=== PATIENT | female | born 1935 | race Caucasian/White ===

== ENCOUNTER → 2018-02-22 | Day surgery (SDC) | payer OTHER ==
[2018-02-09 09:04] VITALS: Ht 157.5 cm; Wt 92.9 kg
--- NOTE | 2018-02-09 15:48 | PAT Medication Instructions ---
Service Date Feb 09, 2018. Current Home Medication List Acetaminophen (Tylenol), 650 MG PO Q4H PRN for Pain Albuterol Hfa (Ventolin Hfa), 2 PUFFS INH QID PRN for Shortness of Breath Aspirin (Aspirin), 325 MG PO DAILY Bisacodyl (Bisacodyl Ec), 5 MG PO DAILY PRN for Constipation Bisacodyl (Biscolax), 1 SUPP OR UD PRN for Constipation Calcium Carbonate-Vitamin D (Calcium + D), 1 TAB PO DAILY Cholecalciferol (Vitamin D), 1,000 UNITS PO DAILY Cranberry (Vaccinium Macrocarp (Cranberry), 405 MG PO BID Docusate Sodium (Colace), 1 CAP PO BID Fluticasone-Salmeterol 115/21 Mcg (Advair Hfa 115/21 Mcg), 1 PUFF INH BID Furosemide (Lasix), 80 MG PO QAM Furosemide (Lasix), 80 MG PO 1400 Gabapentin (Neurontin), 200 MG PO TID Glucosamine-Chondroitin (Glucosamine & Chondroitin 500-400 mg), 1 CAP PO BID Home O2 Therapy (Oxygen), 2 LITERS NA CONTINOUS Insulin Aspart (Novolog), 30 UNITS SQ BREAKFAST Insulin Aspart (Novolog), 30 UNITS SQ SUPPER Insulin Aspart (Novolog), 30 UNITS SQ LUNCH Insulin Glargine (Lantus), 40 UNITS SC QAM Insulin Glargine (Lantus), 80 UNITS SC HS Levothyroxine Sodium (Levothyroxine Sodium), 150 MCG PO Q2D Levothyroxine Sodium (Levothyroxine Sodium), 175 MCG PO Q2D Loratadine (Claritin), 10 MG PO DAILY Melatonin (Kp Melatonin), 6 MG PO HS Metoprolol Tartrate (Lopressor) (Lopressor), 50 MG PO BID Nitroglycerin (Nitrostat), 0.4 MG UT PRN Oxycodone/Acetaminophen 5MG/325MG (Percocet 5MG/325MG), 1 TABLET PO Q6H PRN for Pain Polyethylene Glycol 3350 (Miralax), 17 GM PO DAILY Ramipril (Ramipril), 5 MG PO DAILY Ranitidine (Zantac), 150 MG PO BID Simvastatin (Zocor), 40 MG PO QPM Solifenacin Succinate (Vesicare), 10 MG PO DAILY Medication Instructions For Your Scheduled Surgery - Hold the following medications starting 02/09/18: Glucosamine-Chondroitin (Glucosamine & Chondroitin 500-400 mg), 1 CAP PO BID Cranberry (Vaccinium Macrocarp (Cranberry), 405 MG PO BID - Check with surgeon and prescriber for instructions: Aspirin (Aspirin), 325 MG PO DAILY - Take as scheduled IF NEEDED. Notify surgeon if you take this medication the 24 hours prior to surgery: Nitroglycerin (Nitrostat), 0.4 MG UT PRN - Hold the following medications the morning of surgery: Solifenacin Succinate (Vesicare), 10 MG PO DAILY Polyethylene Glycol 3350 (Miralax), 17 GM PO DAILY Ramipril (Ramipril), 5 MG PO DAILY Furosemide (Lasix), 80 MG PO QAM Docusate Sodium (Colace), 1 CAP PO BID Cholecalciferol (Vitamin D), 1,000 UNITS PO DAILY Calcium Carbonate-Vitamin D (Calcium + D), 1 TAB PO DAILY Bisacodyl (Bisacodyl Ec), 5 MG PO DAILY PRN for Constipation IF NEEDED Bisacodyl (Biscolax), 1 SUPP OR UD PRN for Constipation IF NEEDED Insulin Aspart (Novolog), 30 UNITS SQ BREAKFAST - Take the following medications the morning of surgery with a sip of water: OTHERWISE NOTHING TO EAT OR DRINK AFTER MIDNIGHT Acetaminophen (Tylenol), 650 MG PO Q4H PRN for Pain if needed (okay to take up to 4 hours prior to surgery) Ranitidine (Zantac), 150 MG PO BID Oxycodone/Acetaminophen 5MG/325MG (Percocet 5MG/325MG), 1 TABLET PO Q6H PRN for Pain IF NEEDED, MAY TAKE UP TO 4 HOURS PRIOR TO SURGERY Metoprolol Tartrate (Lopressor) (Lopressor), 50 MG PO BID Levothyroxine Sodium (Levothyroxine Sodium), 150 MCG PO Q2D Levothyroxine Sodium (Levothyroxine Sodium), 175 MCG PO Q2D Loratadine (Claritin), 10 MG PO DAILY Gabapentin (Neurontin), 200 MG PO TID Home O2 Therapy (Oxygen), 2 LITERS NA CONTINUOUS Fluticasone-Salmeterol 115/21 Mcg (Advair Hfa 115/21 Mcg), 1 PUFF INH BID Albuterol Hfa (Ventolin Hfa), 2 PUFFS INH QID PRN for Shortness of Breath IF NEEDED PLEASE BRING TO THE HOSPITAL WITH YOU THE DAY OF SURGERY - Take the following medications as scheduled the night before surgery: Acetaminophen (Tylenol), 650 MG PO Q4H PRN for Pain IF NEEDED Ranitidine (Zantac), 150 MG PO BID Simvastatin (Zocor), 40 MG PO QPM Oxycodone/Acetaminophen 5MG/325MG (Percocet 5MG/325MG), 1 TABLET PO Q6H PRN for PainIF NEEDED Melatonin (Kp Melatonin), 6 MG PO HS Metoprolol Tartrate (Lopressor) (Lopressor), 50 MG PO BID Gabapentin (Neurontin), 200 MG PO TID Home O2 Therapy (Oxygen), 2 LITERS NA CONTINUOUS Furosemide (Lasix), 80 MG PO 1400 Fluticasone-Salmeterol 115/21 Mcg (Advair Hfa 115/21 Mcg), 1 PUFF INH BID Docusate Sodium (Colace), 1 CAP PO BID Albuterol Hfa (Ventolin Hfa), 2 PUFFS INH QID PRN for Shortness of Breath IF NEEDED Bisacodyl (Bisacodyl Ec), 5 MG PO DAILY PRN for Constipation IF NEEDED Bisacodyl (Biscolax), 1 SUPP OR UD PRN for Constipation IF NEEDED Insulin Aspart (Novolog), 30 UNITS SQ SUPPER Insulin Glargine (Lantus), 80 UNITS SC HS - For Insulin Dependent Diabetic patients: Test blood sugar A.M. of surgery. - If Blood Sugar >150, take half of your regular dose of: Insulin Glargine (Lantus), Take 20 UNITS SC the morning of surgery - If Blood Sugar <150, do not take any: Insulin Glargine (Lantus) If you have any questions please call us at [phone] or [phone] or [phone]
[~2018-02-22] VITALS: Ht 157.5 cm; Wt 92.9 kg
[~2018-02-22] MED LIST: 500ML BSS 0.3ML EPI 1:1000PF IRRIG ONE; ACET-1311 PO; ACETAMINOPHEN 325 MG TAB PO PRN; AMVISC PLUS 0.8ML SYRINGE INT OCU ONE; ASPECOTC PO; ATROPINE SULFATE 0.1 MG/ML 5ML SYR IV PRN; BISA10SU13 PR; BISA1TAB25 PO; BSS FLUSH ONE; CALC600T9 PO; CHOL100010 PO; CLR10 PO; CRAN405C3 PO; DOCU-94 PO; ENDOCOAT 0.85ML SYRINGE INT OCU ONE; EpHEDrine SULFATE INJ 50 MG/ML AMP IV PRN; EpINEphrine INJ 1MG/ML AMP 1 MG/ML AMP ONE; FENTANYL CITRATE INJ 50 MCG/1 ML 2 ML VIAL ONE; FLUT115A INH; FURO80TA63 PO; GABA-112 PO; GLUC1CAP33 PO; INSDGI SC; LACTATED RINGER'S 1000ML 500 ML IV SCH; LEVO150T9 PO; LEVO175T3 PO; LIDOCAINE 4% OP SOLN DROP CHARGE ONE; LIDOCAINE 4% OP SOLN DROP CHARGE OPR SCH; LIDOCAINE HCL 1% MPF 2 ML VIAL ONE; MELA1TAB5 PO; METO50TA16 PO; MIDAZOLAM HCL 1 MG/ML 2ML VIAL ONE; MIX: 4ML BSS 1ML EPI 1:1000 PF TOP ONE; MOXIFLOXACIN OPH SOLN PER DROP CHARGE ONE; NTRGSL/4 UT; NVLG SQ; OXGN; OXYC-57 PO; POLY335019 PO; POVIDONE-IODINE OP SOLN 30 ML BTL ONE; PROPARACAINE 0.5% OP SOLN PER DROP CHARGE OPR SCH; RAMI5CAP PO; RANI150T85 PO; SIMV40TA2 PO; TOBRAMYCIN/DEXAMETHASONE OPH OINT PER APPLN CHARGE ONE; VNTHFA/IN INH; VSC/10 PO
[2018-02-22] MEDS: PHENYLEPHRINE HCL 2.5% OP SOLN PER DROP CHARGE OPR SCH ×3 (10:56→11:10)
[2018-02-22] MEDS: TROPICAMIDE 1% OP SOLN PER DROP CHARGE OPR SCH ×3 (10:57→11:11)
[2018-02-22] MEDS: CYCLOPENTOLATE HCL 1% OP SOLN PER DROP CHARGE OPR SCH ×3 (10:58→11:13)
[2018-02-22] MEDS: MOXIFLOXACIN OPH SOLN PER DROP CHARGE OPR SCH ×3 (10:59→11:14)
--- NOTE | 2018-02-22 11:02 | History & Physical Bridge - SC ---
H&P Re-Evaluation Bridge Note: I have examined the patient, reviewed the History & Physical and in the interval since the performance of the History & Physical I have noted the following changes of clinical significance: No changes noted
--- NOTE | 2018-02-22 12:20 | [facility] Post Operative Brief Note ---
Immediate Operative Summary Operative Date Feb 22, 2018. Pre-Operative Diagnosis Cataract right eye Post-Operative Diagnosis Cataract right eye Procedure(s) Performed Right Cataract Phacoemulsification With Intraocular Lens Implant Surgeon Dr. Helder Lopez Retail [employer] Professional Surgeon(s) None Estimated Blood Loss 0ml Findings Consistent with Post-Op Diagnosis Specimens None per surgeon Anesthesia Type MAC Complication(s) none Disposition Accompanied Pt To Recover: no Disposition:
--- NOTE | 2018-02-22 12:22 | [facility] Operative Report ---
Operative Report Date of Service Feb 22, 2018. Operative Report DATE OF OPERATION: 02/22/18 PREOPERATIVE DIAGNOSIS: Senile nuclear cataract, right eye POSTOPERATIVE DIAGNOSIS: Senile nuclear cataract, right eye PROCEDURE PERFORMED: Phacoemulsification with intraocular lens implantation, right eye SURGEON: Dr. Helder Lopez ANESTHESIA: Topical with 1% intracameral lidocaine and monitored anesthesia care COMPLICATIONS: None DESCRIPTION OF PROCEDURE: After positively identifying the patient both verbally and by wristband in the preoperative area, the right eye was marked as the operative eye. The patient was then brought back to the operating room by the anesthesia and nursing staff where they were given a drop of Lidocaine and betadine into the operative eye. They were then sterilely prepped and draped in the standard fashion typical for ophthalmic surgery. Steri-strips were placed along the upper eyelids to keep the lashes back, and a lid speculum was placed into the operative eye. At this point, a documented time out was performed with members of the ophthalmology, nursing, and anesthesia staffs all agreeing upon the correct patient, correct location for surgery, correct procedure, and correct type and power of intraocular lens to be implanted. The microscope was then swung into position. First, a paracentesis wound was made using a sideport blade. Then, in sequence, 1% preservative-free lidocaine followed by Endocoat viscoelastic was injected into the anterior chamber. Next , the main incision was made with a keratome blade in triplanar fashion. Synechiolysis was performed with a Fitzgerald spatula. A Malyugin ring was inserted due to poor pupil dilation. A sharp cystotome was introduced into the eye and used to create a tear in the anterior capsule, which was directed into a continuous curvilinear capsulorrhexis using Utrata forceps. Hydrodissection was then performed with BSS on a flat-tip cannula. Next, the phacoemulsification handpiece was introduced into the eye and used to remove the nucleus in a [id number] fashion. This was done without complication and then the irrigation-aspiration handpiece was introduced into the eye and used to remove all remaining cortical and epinuclear material. Amvisc was then injected into the anterior chamber as well as into the capsular bag and using the lens injector system, an MX60 25.5 D lens, serial number [id number], and expiration date 08/2020 was injected into the capsular bag and rotated into the correct position. The Malyugin ring was removed. Next, the irrigation-aspiration handpiece was used to remove all remaining Amvisc. BSS was used to hydrate the main wound, and then BSS was injected into the paracentesis site to reach physiologic pressure and then the main wound was checked and found to be watertight. The patient was given drops of Vigamox and Tobradex ointment into the operative eye, and then the surrounding area was cleaned and dried. A clear plastic shield was placed over the eye and the patient was then sat up and taken from the operating room by the anesthesia staff having tolerated the procedure well and suffering no complications. DISPOSITION: The patient was returned to the recovery room in stable condition. I attest to the content of the Intraoperative Record and any orders documented therein. Any exceptions are noted below.
--- NOTE | 2018-02-22 12:23 | Discharge Instructions-SurgCtr ---
Discharge Instructions Date of Service Feb 22, 2018. Visit Reason for Visit: Cataract Right Eye Discharge Discharge Diagnosis / Problem: right cataract Discharge Goals Goal(s): Decrease discomfort, Improve function Activity Recommendations Activity Limitations: as noted below Anesthesia . Post Anesthesia Instructions: If you have had General Anesthesia or IV Sedation: * Do not drive today. * Resume driving when surgeon permits. * Do not make important decisions or sign legal documents today. * Call surgeon for: 1. Temperature elevations greater than 101 degrees F. 2. Uncontrollable pain. 3. Excessive bleeding. 4. Persistent nausea and vomiting. 5. Medication intolerance (nausea, vomiting or rash). * For nausea and vomiting use only clear liquids such as: tea, soda, bouillon until nausea subsides, then gradually increase diet as tolerated. * If you have any concerns or questions, call your surgeon's office. If physician is unavailable and it is an emergency, call 911 or go to the nearest emergency room. . Instructions / Follow-Up Instructions / Follow-Up ACTIVITY RECOMMENDATIONS: * Light activities. * You may walk outside, read, watch television. * You may notice redness on the white part of the eye and some blurry vision - this is normal. MEDICATIONS: Resume previous medications unless instructed otherwise by your surgeon. Start all eye drops at 2:30 pm today: * Eye drops (today): Prednisone - one drop in operative eye every 2 hours while awake Ofloxacin - one drop in operative eye every 2 hours while awake Prolensa - one drop in operative eye daily SPECIAL CARE INSTRUCTIONS: * Tape plastic shield over eye to sleep at night. Call your doctor at with any concerns or problems. FOLLOW UP VISIT: Follow-up with Dr Lopez at [facility] as scheduled. Diet Recommendations Home Diet: no limitations Procedures Procedures Performed: Right Cataract Phacoemulsification With Intraocular Lens Implant Pending Studies Studies pending at discharge: no Medical Emergencies . Who to Call and When: Medical Emergencies: If at any time you feel your situation is an emergency, please call 911 immediately. . Non-Emergent Contact Non-Emergency issues call your: Surgeon . . "Provider Documentation" section prepared by Helder Lopez. .
[2018-02-22 12:30] VITALS: TEMP 36
--- NOTE | 2018-02-22 12:40 | Anesthesia Progress Nt - [facility] ---
Anesthesia Post Op Note Date & Time Feb 22, 2018 at 12:39 Vital Signs Pain Intensity: 0 Vital Signs Past 12 Hours Date Time Temp Pulse Resp B/P (MAP) Pulse Ox O2 Delivery O2 Flow Rate FiO2 02/22/18 10:46 36.5 64 20 126/88 (101) 96 Nasal Cannula 2 Notes Mental Status: alert / awake / arousable, participated in evaluation Pt Amnestic to Procedure: Yes Nausea / Vomiting: adequately controlled Pain: adequately controlled Airway Patency, RR, SpO2: stable & adequate BP & HR: stable & adequate Hydration State: stable & adequate Anesthetic Complications: no major complications apparent
[2018-02-22 12:56] VITALS: BP 110/55; PULSE 70; O2SAT 94
== END | disposition home or self-care (01) ==
LOC: X.SURG 10:02
PROVIDERS: ATTEND Ophthalmology
DX: H25.11 Age-related nuclear cataract, right eye (principal); J45.909 Unspecified asthma, uncomplicated; I11.0 Hypertensive heart disease with heart failure; I50.9 Heart failure, unspecified; K21.9 Gastro-esophageal reflux disease without esophagitis; E10.9 Type 1 diabetes mellitus without complications; H18.51 Endothelial corneal dystrophy; H35.30 Unspecified macular degeneration; E78.00 Pure hypercholesterolemia, unspecified; E66.9 Obesity, unspecified; Z68.37 Body mass index [BMI] 37.0-37.9, adult; Z88.0 Allergy status to penicillin; Z90.710 Acquired absence of both cervix and uterus; Z90.49 Acquired absence of other specified parts of digestive tract; Z99.81 Dependence on supplemental oxygen; Z79.82 Long term (current) use of aspirin